=== PATIENT | male | born 1990 | race Caucasian/White ===

== ENCOUNTER → 2016-07-19 | Outpatient (CLI) | payer OTHER ==
[~2016-07-19] MED LIST: ADDERALL 10 MG10 MG PO; ADDERALL PO; AMOXIL500 MG PO; BACTRIM DS 8001 TA1 PO; BACTRIM DS 8001 TAB PO; BACTROBAN OINT22 GM PO; CIPROFLOXACIN500 MG PO; HYDROCODONE BIT1 T11 PO; HYDROCODONE BIT1 T19 PO; KEFLEX500 M1 PO; KEFLEX500 MG PO; METRONIDAZOLE500 MG PO; MOTRIN800 MG PO; Motrin,Rufen800 MG PO; NORCO 325 MG-51 TAB PO; PEN-V500 MG PO; PEN-VEE K500 MG PO; PEN-VK500 MG PO; PERIDEX 480 ML480 ML PO; PHENERGAN W/DM120 ML PO; PROAIR HFA0.09 MG/AC INH; ROBITUSSIN DM 105 ML PO; TESSALON PERLE200 MG PO; ULTRAM50 MG PO; VICODIN 500 MG-1 TAB PO; ZOFRAN ODT4 MG SL; ZYRTEC10 MG PO; [UNRECOGNIZED DRUG - OTHER] PO
== END | disposition home or self-care (01) ==
LOC: CARD 08:57
DX: F15.90 Other stimulant use, unspecified, uncomplicated (principal)

== ENCOUNTER 2016-08-01 14:31 | Emergency (ER) | payer OTHER ==
[~2016-08-01] VITALS: Ht 187.9 cm; Wt 90.7 kg
[2016-08-01] MEDS ORDERED: CEPHALEXIN500 M1 PO (14:56)
[2016-08-01] MEDS ORDERED: NAPROSYN500 MG PO (14:56)
== END 2016-08-01 14:57 | disposition home or self-care (01) ==
LOC: ED 14:31
DX: L02.612 Cutaneous abscess of left foot (principal); F17.200 Nicotine dependence, unspecified, uncomplicated; Z90.49 Acquired absence of other specified parts of digestive tract

== ENCOUNTER 2016-08-21 14:42 | Emergency (ER) | payer OTHER ==
[~2016-08-21] VITALS: Wt 90.7 kg
[~2016-08-21 14:42] MED LIST changes: +CEPHALEXIN500 M1 PO; +NAPROSYN500 MG PO
[2016-08-21] MEDS ORDERED: Motrin,Rufen800 MG PO (17:07)
== END 2016-08-21 17:12 | disposition home or self-care (01) ==
LOC: ED 14:42
DX: S20.212A Contusion of left front wall of thorax, initial encounter (principal); F17.200 Nicotine dependence, unspecified, uncomplicated; Z90.49 Acquired absence of other specified parts of digestive tract; V16.2XXA Unspecified pedal cyclist injured in collision with other nonmotor vehicle in nontraffic accident, initial encounter; Y93.89 Activity, other specified; Y99.9 Unspecified external cause status; Y92.413 State road as the place of occurrence of the external cause

== ENCOUNTER 2016-09-23 22:35 | Emergency (ER) | payer OTHER ==
[~2016-09-23] VITALS: Ht 187.9 cm; Wt 86.2 kg
== END 2016-09-24 00:13 | disposition home or self-care (01) ==
LOC: ED 22:35
DX: H16.133 Photokeratitis, bilateral (principal); G43.909 Migraine, unspecified, not intractable, without status migrainosus; F17.200 Nicotine dependence, unspecified, uncomplicated; Z90.49 Acquired absence of other specified parts of digestive tract

== ENCOUNTER 2016-10-07 19:00 | Emergency (ER) | payer OTHER ==
[~2016-10-07] VITALS: Ht 187.9 cm; Wt 90.7 kg
[2016-10-07] MEDS ORDERED: TOBREX OPHTH S2.5 ML OPH (19:43)
== END 2016-10-07 19:46 | disposition home or self-care (01) ==
LOC: ED 19:00
DX: H16.133 Photokeratitis, bilateral (principal); F17.200 Nicotine dependence, unspecified, uncomplicated; G43.909 Migraine, unspecified, not intractable, without status migrainosus; Z79.899 Other long term (current) drug therapy

== ENCOUNTER 2016-11-28 18:36 | Emergency (ER) | payer OTHER ==
[~2016-11-28] VITALS: Ht 187.9 cm; Wt 84.4 kg
[~2016-11-28 18:36] MED LIST changes: +TOBREX OPHTH S2.5 ML OPH
== END 2016-11-28 21:10 | disposition home or self-care (01) ==
LOC: ED 18:36
DX: S60.121A Contusion of right index finger with damage to nail, initial encounter (principal); F17.200 Nicotine dependence, unspecified, uncomplicated; G43.909 Migraine, unspecified, not intractable, without status migrainosus; W22.8XXA Striking against or struck by other objects, initial encounter; Y93.89 Activity, other specified; Y92.9 Unspecified place or not applicable; Y99.9 Unspecified external cause status

== ENCOUNTER 2017-03-04 15:38 | Emergency (ER) | payer OTHER ==
[~2017-03-04] VITALS: Ht 187.9 cm; Wt 84.4 kg
[2017-03-04 16:34] LABS: BASO # 0.1 10*3/uL (0.0-0.1); BASO % 0.5 % (0.0-1.0); EOS # 0.1 10*3/uL (0.0-0.4); EOS % 1.2 % (1.0-4.0); HEMATOCRIT 46.8 % (42.0-52.0); HEMOGLOBIN 15.3 g/dl (14.0-18.0); LYMPH # 2.4 10*3/uL (1.3-4.4); LYMPH % 22.7 % (27.0-41.0); MEAN CELL VOLUME 85.9 fl (80.0-94.0); MEAN CORPUSCULAR HGB 28.1 pg (27.0-31.0); MEAN CORPUSCULAR HGB CONC 32.7 g/dl (33.0-37.0); MEAN PLATELET VOLUME 10.5 fl (9.6-12.3); MONO # 0.9 10*3/uL (0.1-1.0); MONO % 8.5 % (3.0-9.0); NEUT # 6.9 10*3/uL (2.3-7.9); NEUT % 66.8 % (47.0-73.0); PLATELET COUNT AUTOMATED 233 10*3/uL (130-400); RED BLOOD COUNT 5.45 10*6/uL (4.50-5.90); RED CELL DISTRI WIDTH 12.9 % (0-14.5); WHITE BLOOD COUNT 10.4 10*3/uL (4.8-10.8)
[2017-03-04 16:57] LABS: ALBUMIN 3.6 gm/dl (3.1-4.5); ALKALINE PHOSPHATASE 68 U/L (45-117); BUN 8 mg/dl (7-24); CHLORIDE 108 mmol/L (98-107); CREATININE 0.76 mg/dL (0.70-1.30); LIPASE 79 U/L (73-393); POTASSIUM 4.5 mmol/L (3.5-5.1); SGOT/AST 14 IU/L (3-35); SGPT/ALT 19 U/L (12-78); SODIUM 142 mmol/L (136-145)
[2017-03-04 17:41] LABS: BILIRUBIN NEGATIVE (NEGATIVE); BLOOD NEGATIVE (NEGATIVE); CLARITY CLEAR (CLEAR); COLOR YELLOW (YELLOW); GLUCOSE NEGATIVE (NEGATIVE); KETONE NEGATIVE (NEGATIVE); LEUKO ESTERASE NEGATIVE (NEGATIVE); NITRITE NEGATIVE (NEGATIVE); PH 5.5 (5.0-9.0); SPECIFIC GRAVITY >= 1.030 (1.005-1.030); UROBILINOGEN 0.2 E.U./dl (0.2-1.0)
[2017-03-04 17:54] LABS: BACTERIA TRACE; EPITHELIAL CELLS 0-2; MUCOUS 1+; WBC 0-2 wbc/hpf (0-5)
[2017-03-04] MEDS ORDERED: Zofran4 MG SL (19:04)
== END 2017-03-04 19:11 | disposition home or self-care (01) ==
LOC: ED 15:38
PROVIDERS: Physician Assistant
DX: R10.30 Lower abdominal pain, unspecified (principal); R11.2 Nausea with vomiting, unspecified; R14.2 Eructation; F17.200 Nicotine dependence, unspecified, uncomplicated

== ENCOUNTER 2017-08-07 09:28 | Emergency (ER) | payer OTHER ==
[~2017-08-07] VITALS: Ht 187.9 cm; Wt 86.2 kg
[~2017-08-07 09:28] MED LIST changes: +Zofran4 MG SL
[2017-08-07] MEDS ORDERED: NAPROSYN500 MG PO (09:37)
[2017-08-07] MEDS ORDERED: NORCO 5-325 TA1 EACH PO (10:56)
== END 2017-08-07 11:03 | disposition home or self-care (01) ==
LOC: ED 09:28
DX: S92.414A Nondisplaced fracture of proximal phalanx of right great toe, initial encounter for closed fracture (principal); S90.31XA Contusion of right foot, initial encounter; S90.121A Contusion of right lesser toe(s) without damage to nail, initial encounter; R03.0 Elevated blood-pressure reading, without diagnosis of hypertension; G43.909 Migraine, unspecified, not intractable, without status migrainosus; Z98.890 Other specified postprocedural states; Z90.49 Acquired absence of other specified parts of digestive tract; W22.8XXA Striking against or struck by other objects, initial encounter; Y93.89 Activity, other specified; Y92.89 Other specified places as the place of occurrence of the external cause; Y99.9 Unspecified external cause status

== ENCOUNTER → 2019-12-16 | Outpatient (CLI) | payer OTHER ==
[~2019-12-16] MED LIST changes: +NORCO 5-325 TA1 EACH PO
[2019-12-16 14:58] LABS: BASO # 0.1 10*3/uL (0.0-0.1); BASO % 0.7 % (0.0-1.0); EOS # 0.2 10*3/uL (0.0-0.4); EOS % 1.9 % (1.0-4.0); HEMATOCRIT 48.4 % (42.0-52.0); LYMPH # 3.2 10*3/uL (1.3-4.4); LYMPH % 28.8 % (27.0-41.0); MEAN CORPUSCULAR HGB 28.7 pg (27.0-31.0); MEAN CORPUSCULAR HGB CONC 32.6 g/dl (33.0-37.0); MEAN PLATELET VOLUME 9.8 fl (9.6-12.3); MONO # 0.8 10*3/uL (0.1-1.0); MONO % 7.7 % (3.0-9.0); NEUT # 6.6 10*3/uL (2.3-7.9); NEUT % 60.3 % (47.0-73.0); PLATELET COUNT AUTOMATED 268 10*3/uL (130-400); RED CELL DISTRI WIDTH 13.4 % (0-14.5)
[2019-12-16 15:07] LABS: URINE AMPHETAMINES < 1000 (1000ng/ml); URINE BARBITURATES < 200 (200ng/ml); URINE BENZODIAZEPINES < 200 (200ng/ml); URINE CANNABINOIDS (THC) < 50 (50ng/ml); URINE COCAINE < 300 (300ng/ml); URINE METHADONE < 300 (300ng/ml); URINE OPIATES < 300 (300ng/ml)
[2019-12-16 15:08] LABS: URINE PHENCYCLIDINE < 25 (25ng/ml)
[2019-12-16 15:23] LABS: CHLORIDE 109 mmol/L (98-107); POTASSIUM 4.1 mmol/L (3.5-5.1); SODIUM 140 mmol/L (136-145)
[2019-12-16 15:48] LABS: ALBUMIN 3.8 gm/dl (3.1-4.5); ALKALINE PHOSPHATASE 82 U/L (45-117); BILIRUBIN, DIRECT < 0.1 mg/dL (0.0-0.2); BUN 15 mg/dl (7-24); CREATININE 0.84 mg/dL (0.70-1.30); SGOT/AST 31 IU/L (3-35); SGPT/ALT 51 U/L (12-78); TOTAL PROTEIN 7.7 gm/dL (6.4-8.2)
[2019-12-16 16:03] LABS: VITAMIN D, 25-HYDROXY 17.6 ng/mL (30-100)
== END | disposition home or self-care (01) ==
LOC: LAB 14:37
PROVIDERS: ATTEND Physician Assistant
DX: Z51.81 Encounter for therapeutic drug level monitoring (principal)

== ENCOUNTER 2020-05-13 13:01 | Emergency (ER) | payer OTHER ==
[~2020-05-13] VITALS: Wt 136.1 kg
[2020-05-13 14:13] LABS: BASO # 0.1 10*3/uL (0.0-0.1); BASO % 0.6 % (0.0-1.0); EOS # 0.1 10*3/uL (0.0-0.4); EOS % 0.8 % (1.0-4.0); HEMATOCRIT 52.4 % (42.0-52.0); LYMPH # 3.1 10*3/uL (1.3-4.4); LYMPH % 25.6 % (27.0-41.0); MEAN CELL VOLUME 85.9 fl (80.0-94.0); MEAN CORPUSCULAR HGB 28.9 pg (27.0-31.0); MEAN CORPUSCULAR HGB CONC 33.6 g/dl (33.0-37.0); MEAN PLATELET VOLUME 10.3 fl (9.6-12.3); MONO # 1.1 10*3/uL (0.1-1.0); MONO % 8.8 % (3.0-9.0); NEUT # 7.7 10*3/uL (2.3-7.9); NEUT % 63.9 % (47.0-73.0); PLATELET COUNT AUTOMATED 289 10*3/uL (130-400); RED CELL DISTRI WIDTH 13.1 % (0-14.5); WHITE BLOOD COUNT 12.1 10*3/uL (4.8-10.8)
[2020-05-13 14:24] LABS: ACT PARTIAL THROMBO TIME 30.6 SECONDS (20.0-32.1)
[2020-05-13 14:29] LABS: ALBUMIN 3.9 gm/dl (3.1-4.5); ALKALINE PHOSPHATASE 92 U/L (45-117); BUN 12 mg/dl (7-24); CHLORIDE 108 mmol/L (98-107); CREATININE 0.92 mg/dL (0.70-1.30); LIPASE 57 U/L (73-393); POTASSIUM 3.9 mmol/L (3.5-5.1); SGOT/AST 15 IU/L (3-35); SGPT/ALT 41 U/L (12-78); SODIUM 139 mmol/L (136-145); TOTAL PROTEIN 7.6 gm/dL (6.4-8.2)
== END 2020-05-13 17:32 | disposition home or self-care (01) ==
LOC: ED 13:01
PROVIDERS: Emergency Medicine
DX: K92.1 Melena (principal); F17.200 Nicotine dependence, unspecified, uncomplicated; Z79.899 Other long term (current) drug therapy; Z90.49 Acquired absence of other specified parts of digestive tract; Z98.890 Other specified postprocedural states

== ENCOUNTER 2020-07-20 08:20 | Emergency (ER) | payer OTHER ==
[~2020-07-20] VITALS: Ht 187.9 cm; Wt 136.1 kg
[2020-07-20] MEDS ORDERED: NAPROXEN250 MG PO (09:28)
[2020-07-20] MEDS ORDERED: TYLENOL325 M1 PO (09:28)
[2020-07-20] MEDS ORDERED: CYCLOBENZAPRINE10 MG PO (09:28)
== END 2020-07-20 09:34 | disposition home or self-care (01) ==
LOC: ED 08:20
DX: S49.92XA Unspecified injury of left shoulder and upper arm, initial encounter (principal); G43.909 Migraine, unspecified, not intractable, without status migrainosus; Z79.899 Other long term (current) drug therapy; Z90.49 Acquired absence of other specified parts of digestive tract; X58.XXXA Exposure to other specified factors, initial encounter; Y93.89 Activity, other specified; Y92.89 Other specified places as the place of occurrence of the external cause; Y99.8 Other external cause status

== ENCOUNTER 2021-01-15 09:04 | Emergency (ER) | payer OTHER ==
[~2021-01-15] VITALS: Ht 187.9 cm; Wt 136.1 kg
[~2021-01-15 09:04] MED LIST changes: +CYCLOBENZAPRINE10 MG PO; +NAPROXEN250 MG PO; +TYLENOL325 M1 PO
[2021-01-15] MEDS ORDERED: ABILIFY MAINTE400 MG IM (09:18)
[2021-01-15] MEDS ORDERED: METHYLPHENIDATE36 M3 PO (09:18)
[2021-01-15] MEDS ORDERED: HYDROCODONE-AC1 EAC1 PO (13:08)
[2021-01-15] MEDS ORDERED: KEFLEX750 M1 PO (13:08)
== END 2021-01-15 13:31 | disposition left against medical advice (07) ==
LOC: ED 09:04
DX: S61.210A Laceration without foreign body of right index finger without damage to nail, initial encounter (principal); W23.0XXA Caught, crushed, jammed, or pinched between moving objects, initial encounter; Y93.89 Activity, other specified; Y92.89 Other specified places as the place of occurrence of the external cause; Y99.8 Other external cause status

== ENCOUNTER 2022-02-11 22:39 | Emergency (ER) | payer OTHER ==
[~2022-02-11] VITALS: Wt 135.6 kg
[~2022-02-11 22:39] MED LIST changes: +ABILIFY MAINTE400 MG IM; +HYDROCODONE-AC1 EAC1 PO; +KEFLEX750 M1 PO; +METHYLPHENIDATE36 M3 PO
[2022-02-11] MEDS ORDERED: VISTARIL25 M2 PO (22:47)
[2022-02-12] MEDS ORDERED: NAPROXEN250 MG PO (00:22)
== END 2022-02-12 00:31 | disposition home or self-care (01) ==
LOC: ED 22:39
DX: S50.01XA Contusion of right elbow, initial encounter (principal); Z90.49 Acquired absence of other specified parts of digestive tract; W13.8XXA Fall from, out of or through other building or structure, initial encounter; Y93.51 Activity, roller skating (inline) and skateboarding; Y92.89 Other specified places as the place of occurrence of the external cause; Y99.8 Other external cause status